=== PATIENT | female | born 1960 | race Caucasian/White ===

== ENCOUNTER 2024-05-05 14:26 | Emergency (ER) | payer MEDICARE ==
[~2024-05-05] VITALS: Ht 154.9 cm; Wt 75.7 kg
[2024-05-05 14:45] VITALS: PULSE 84; RESP 16; TEMP 98.2; O2SAT 96
[2024-05-05] MEDS ORDERED: MUPIROCIN22 GM TOP (15:21)
[2024-05-05] MEDS ORDERED: BACTRIM DS TAB1 EACH PO (15:21)
[2024-05-05] MEDS ORDERED: CEFDINIR300 MG PO (15:21)
== END 2024-05-05 15:30 | disposition home or self-care (01) ==
LOC: ER 14:45
DX: L03.113 Cellulitis of right upper limb (principal); J44.9 Chronic obstructive pulmonary disease, unspecified
CPT/HCPCS: 99283

== ENCOUNTER 2024-05-14 14:38 | Emergency (ER) | payer MEDICARE, OTHER ==
[~2024-05-14] VITALS: Ht 154.9 cm; Wt 75.7 kg
[~2024-05-14 14:38] MED LIST: BACTRIM DS TAB1 EACH PO; CEFDINIR300 MG PO; MUPIROCIN22 GM TOP
[2024-05-14 15:02] VITALS: PULSE 84; RESP 16; TEMP 97.3; O2SAT 100
[2024-05-14] MEDS ORDERED: FLUCONAZOLE200 MG PO (15:54)
[2024-05-14] MEDS ORDERED: DOXYCYCLINE HY100 MG PO (15:55)
== END 2024-05-14 16:53 | disposition home or self-care (01) ==
LOC: ER 15:22
DX: Z48.00 Encounter for change or removal of nonsurgical wound dressing (principal)
CPT/HCPCS: 99283